=== PATIENT | female | born 2000 | race Caucasian/White ===

== ENCOUNTER 2021-10-12 03:56 | Emergency (ER) | payer SELFPAY ==
--- OUTSIDE RECORDS SUMMARY | 2021-10-12 03:58 | XMS REPORT | Continuity of Care Document ---
:2000 Author Organization [facility] t Address [address] [place] [address] Care Team Providers Name Role Phone CATALINA Attending Clinician Unavailable Payers Payer Name Policy Type Policy Number Effective Date Expiration Date Christy RAMIREZ O [id number] 2015 00:00:00 Problems This patient has no known problems. Allergies, Adverse Reactions, Alerts Allergy Allergy Status Severity Reaction(s) Onset Inactive Treating Comm ents Source Name Type Date Date Clinician NO KNOWN Drug Active [facility] ALLERGIE Class [facility] Medications This patient has no known medications. Procedures This patient has no known procedures. Encounters Start End Encounter Admission Attending Care Care Encounter Source Date/Time Date/Time Type Type Clinicians Facility Department ID 2020-11-16 2020-11-16 Outpatient Bria ARNOLD [facility] [id number] Univers 10:30:00 10:30:00 WINSOME [id number] [facility] 2020-11-16 2020-11-16 Outpatient Bria ARNOLD [facility] [id number] [facility] 10:30:00 10:30:00 WINSOME [facility] Results This patient has no known results.
[2021-10-12 04:57] LABS: Urine Blood 1+ (Negative); Urine Glucose Negative (Negative); Urine Protein Negative (Negative); Urine Specific Gravity 1.025 (1.005-1.030)
[2021-10-12 05:10] LABS: Absolute Lymphocytes (CBC) 2.3 K/uL (0.7-4.9); Basophils % 0.4 % (0-1.3); Hematocrit 39.3 % (36.0-45.0); Lymphocytes % 21.9 % (15.3-44.8); MPV 8.6 fL (7.6-11.3); RBC Red Blood Cell Count 4.44 M/uL (3.86-4.86)
[2021-10-12 05:13] LABS: Protime INR 0.95
[2021-10-12 05:21] LABS: Barbiturates NEGATIVE (NEGATIVE); Benzodiazepines NEGATIVE (NEGATIVE); Cocaine NEGATIVE (NEGATIVE); METHAMPHETAM NEGATIVE (NEGATIVE); Methadone NEGATIVE (NEGATIVE); Opiates NEGATIVE (NEGATIVE); Phencyclidine NEGATIVE (NEGATIVE); THC Cannibis POSITIVE (NEGATIVE)
[2021-10-12 06:08] LABS: Urine Specific Gravity/Preg 1.025 (1.005-1.030)
[2021-10-12 06:29] LABS: Sodium Level 143 mmol/L (136-145)
[2021-10-12 06:32] LABS: Potassium 2.9 mmol/L (3.5-5.1)
[2021-10-12 07:08] LABS: ALT/SGPT 11 U/L (12-78); AST/SGOT 10 U/L (15-37); Albumin 2.6 g/dL (3.4-5.0); BUN Blood Urea Nitrogen 7 mg/dL (7-18); Bicarbonate 19 mmol/L (21-32); Bilirubin Direct 0.2 mg/dL (0-0.2); Bilirubin Total 0.8 mg/dL (0.2-1.0); Glucose Level 73 mg/dL (74-106); Protein, Total 5.3 g/dL (6.4-8.2); Troponin (Emerg Dept Use Only) < 0.02 ng/mL (0.0-0.045)
[2021-10-12] MEDS ORDERED: POTASSIUM CL SA 10 MEQ TAB PO ONE (07:12)
[2021-10-12 07:33] LABS: Alkaline Phosphatase 31 U/L (45-117)
[2021-10-12] MEDS ORDERED: CALCIUM GLUCONATE 1 GM IVPB 1 GM/50 ML BAG IV ONE (08:29)
[2021-10-12] MEDS ORDERED: Mastisol Adhesive Liq ONE (08:33)
[2021-10-12] MEDS ORDERED: TETANUS & DIPHTHERIA TOX,ADULT 0.5 ML VIAL ONE (09:00)
[2021-10-12] MEDS ORDERED: SMZ./TMP. 800/160 MG TABLET ONE (09:44)
--- NOTE | 2021-10-12 09:48 | ER ---
Nurse's Notes [facility] Name: Zuleyka Garcia Age: 21 yrs Sex: Female : 2000 Arrival Date: 10/12/2021 Time: 03:56 Bed 14 Private MD: Diagnosis: Unspecified injury of head, initial encounter;Laceration of right lateral chest wall;Hypokalemia;Hypocalcemia;UTI/ Urinary tract infection, site not specified;Syncope Near Presentation: 10/12 03:59 Chief complaint: Patient states: pt tripped and fell at home no active bleeding or mr2 deformities aox4 denies pain. Care prior to arrival: None. Mechanism of Injury: Fall from standing position. Trauma event details: Injury occurred in the [facility], Injury occurred: at home. Injury occurred: October 12, 2021. 03:59 Acuity: MELANI 2 mr2 03:59 Method Of Arrival: EMS: [facility] mr2 04:00 Coronavirus screen: Vaccine status: Patient reports receiving the 2nd dose of the covid mr2 vaccine. Ebola Screen: No symptoms or risks identified at this time. Initial Sepsis Screen: Does the patient meet any 2 criteria? No. Patient's initial sepsis screen is negative. Does the patient have a suspected source of infection? No. Patient's initial sepsis screen is negative. Risk Assessment: Do you want to hurt yourself or someone else? Patient reports no desire to harm self or others. Onset of symptoms was October 12, 2021. Triage Assessment: 04:00 General: Appears in no apparent distress. Behavior is calm, cooperative, Smells of mr2 Reports. Pain: Denies pain. 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 - Social history:: Smoking status: Patient denies any tobacco usage or history of. Screenin:00 Abuse screen: Denies threats or abuse. Denies injuries from another. Tuberculosis mr2 screening: No symptoms or risk factors identified. 06:13 Nutritional screening: No deficits noted. Fall Risk None identified. mr2 Primary Survey: 03:59 NO uncontrolled hemorrhage observed. A: Airway: patent. Breathing/Chest: Respiratory mr2 pattern: regular, Respiratory effort: spontaneous, Breath sounds: clear, bilaterally. Circulation: Pulses: palpable right radial artery, right dorsalis pedis artery, left radial artery and left dorsalis pedis artery. Skin color: pink, Skin temperature: warm. Disability Alert. Exposure/Environment: All clothing and personal items were removed. Forensic evidence collection is not deemed to be indicated at this time. Items placed in patient belonging bag. There is no evidence of uncontrolled external bleeding. No obvious injuries are noted at this time. 05:00 Reassessment Airway Airway Patent Oxygen No O2 Breathing/Chest Respiratory pattern mr2 Regular Respiratory effort Spontaneous Breath sounds Clear Circulation Heart rhythm Sinus rhythm Heart tones Present Pulses Palpable Color [place]. Secondary Survey: 04:10 HEENT: No deficits noted. Gastrointestinal: No deficits noted. : No deficits noted. mr2 Musculoskeletal: No deficits noted. Assessment: 03:59 General: Appears in no apparent distress. Behavior is calm, cooperative. Pain: Denies mr2 pain. 07:20 Reassessment: Patient appears in no apparent distress at this time. Patient and/or vg1 family updated on plan of care and expected duration. Pain level reassessed. Patient is alert, oriented x 3, equal unlabored respirations, skin warm/dry/pink. states Left ankle pain 2/10 Patient states feeling better. 07:20 Derm: Derm: Skin Wound noted Right lateral side of ribs. vg1 08:49 Reassessment: Patient appears in no apparent distress at this time. No changes from vg1 previously documented assessment. Patient and/or family updated on plan of care and expected duration. Pain level reassessed. Patient is alert, oriented x 3, equal unlabored respirations, skin warm/dry/pink. wound care was provided for pt, steri strips and mastisol was placed per provider. 09:46 Reassessment: Patient appears in no apparent distress at this time. Patient and/or vg1 family updated on plan of care and expected duration. Pain level reassessed. Patient is alert, oriented x 3, equal unlabored respirations, skin warm/dry/pink. Received VO from DR Sutherland to administer Bactrim 800 mg PO x1. Vital Signs: 03:57 BP 129 / 68; Pulse 117; Resp 18; Temp 97.7(O); Pulse Ox 100% on R/A; Weight 63.5 kg; oe Height 5 ft. 4 in. (162.56 cm); 05:00 BP 117 / 72; Pulse 100; Resp 17; Temp 98.2; Pulse Ox 100% on R/A; Weight 58.06 kg; mr2 Height 5 ft. 3 in. (160.02 cm); 07:20 BP 97 / 68; Pulse 90; Resp 16; Pulse Ox 100% ; vg1 08:30 BP 106 / 59; Pulse 90; Resp 16; Pulse Ox 98% ; vg1 09:47 BP 114 / 65; Pulse 84; Resp 14; Pulse Ox 99% ; vg1 05:00 Body Mass Index 22.67 (58.06 kg, 160.02 cm) mr2 [place] Coma Score: 05:00 Eye Response: spontaneous(4). Verbal Response: oriented(5). Motor Response: obeys mr2 commands(6). Total: 15. Trauma Score (Adult): 05:00 Eye Response: spontaneous(1); Verbal Response: oriented(1); Motor Response: obeys mr2 commands(2); Systolic BP: > 89 mm Hg(4); Respiratory Rate: 10 to 29 per min(4); Anupam Score: 15; Trauma Score: 12 ED Course: 03:56 Patient arrived in ED. mw2 04:00 Carlton Salinas MD is Attending Physician. mh7 04:00 Patient maintains SpO2 saturation greater than 95% on room air. mr2 04:00 Thermoregulation: warm blanket given to patient. mr2 04:00 Patient has correct armband on for positive identification. Side rails up X2. Adult w/ mr2 patient. 04:00 Arm band placed on Patient placed in the treatment room. mr2 04:11 Akash Prakash, ONDINA is Primary Nurse. mr2 05:00 Protime (+inr) Sent. mr2 05:00 Ptt, Activated Sent. mr2 05:00 Basic Metabolic Panel Sent. mr2 05:00 CBC with Diff Sent. mr2 05:00 Type And Screen Sent. mr2 05:02 CBC with Automated Diff Sent. mr2 05:02 Type and Screen Sent. mr2 05:02 Basic Metabolic Panel Sent. mr2 05:02 Troponin (emerg Dept Use Only) Sent. mr2 05:02 ETOH Level Sent. mr2 05:02 UDS Sent. mr2 05:50 CT Traumagram (Head C Spine CAP W Con) In Process Unspecified. EDMS 06:07 Triage completed. mr2 06:13 No provider procedures requiring assistance completed. Inserted saline lock: 18 gauge mr2 in right antecubital area, using aseptic technique. 07:03 Attending Physician role handed off by Carlton Salinas MD kdr 07:03 Blade Sutherland MD is Attending Physician. kdr 09:56 IV discontinued, intact, bleeding controlled, No redness/swelling at site. Pressure vg1 dressing applied. Administered Medications: 05:02 Drug: NS 0.9% 1000 ml Route: IV; Rate: 1000 ml; Site: left antecubital; mr2 08:07 Follow up: IV Status: Completed infusion; IV Intake: 1000ml vg1 07:10 Drug: Potassium Chloride Liquid 40 mEq Route: PO; vg1 08:28 Follow up: Response: No adverse reaction vg1 08:41 Drug: Calcium Gluconate 1 grams Route: IVPB; Infused Over: 60 mins; Site: right vg1 antecubital; 08:49 Follow up: Calium Gluconate 1 gram in 50 mL was administered to pt. Provider notified. vg1 09:06 Follow up: IV Status: Completed infusion; IV Intake: 50ml vg1 09:05 Drug: Tetanus-Diphtheria Toxoid Adult 0.5 ml {Currency Examiner: [employer]. Exp: vg1 03/20/2023. Lot #: [id number]. } Route: IM; Site: right deltoid; 09:41 Follow up: Response: No adverse reaction vg1 09:46 Drug: Bactrim (trimethoprim-sulfamethoxazole) (160 mg-800 mg (DS) 1 tablet Route: PO; vg1 09:59 Follow up: Response: Medication administered at discharge. vg1 09:47 CANCELLED (Duplicate Order): Bactrim (trimethoprim-sulfamethoxazole) (160 mg-800 mg vg1 (DS) 1 tablet PO once Intake: 05:00 PO: 0ml; IV: 1000ml; Tubes: 0ml (); Total: 1000ml. mr2 08:07 IV: 1000ml; Total: 2000ml. vg1 09:06 IV: 50ml; Total: 2050ml. vg1 Output: 05:00 Urine: 200ml (Voided); Total: 200ml. mr2 Outcome: 09:48 Discharge ordered by . kdr 09:56 Discharged to home ambulatory, with friend. vg1 09:56 Condition: stable 09:56 Discharge instructions given to patient, Instructed on discharge instructions, follow up and referral plans. medication usage, wound care, Demonstrated understanding of instructions, follow-up care, medications, wound care, Prescriptions given X 1. 09:56 Patient's length of stay in the Emergency Department was greater than 2 hours. vg1 Patient's length of stay extended due to 09:58 Patient left the ED. vg1 Signatures: Dispatcher [employer] EDMS Blade Sutherland MD MD [facility] Levi Chavez MyKena 2 Zainab Hamlin, RN RN vg1 Carlton Salinas MD MD 7 Akash Prakash, ONDINA RN mr2 Corrections: (The following items were deleted from the chart) 08:55 08:49 Reassessment: Patient appears in no apparent distress at this time. No changes vg1 from previously documented assessment. Patient and/or family updated on plan of care and expected duration. Pain level reassessed. Patient is alert, oriented x 3, equal unlabored respirations, skin warm/dry/pink. vg1
--- NOTE | 2021-10-12 09:49 | EDPHYS ---
Physician Documentation [facility] Name: Zuleyka Garcia Age: 21 yrs Sex: Female : 2000 Arrival Date: 10/12/2021 Time: 03:56 Bed 14 Private MD: ED Physician Blade Sutherland HPI: 10/12 04:07 This 21 yrs old Female presents to ER via Unassigned with complaints of Fall. mh7 04:07 Details of fall: The patient fell from an upright position, while walking, and struck [facility] unknown. Onset: The symptoms/episode began/occurred just prior to arrival, today. Associated injuries: The patient sustained Right side of back, abrasion, contusion. Severity of symptoms: At their worst the symptoms were moderate, earlier today, in the emergency department the symptoms have improved, moderately. 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 - Social history:: Smoking status: Patient denies any tobacco usage or history of. ROS: 04:07 Constitutional: Negative for fever, chills, and weight loss, Eyes: Negative for injury, mh7 pain, redness, and discharge, ENT: Negative for injury, pain, and discharge, Neck: Negative for injury, pain, and swelling, Cardiovascular: Negative for chest pain, palpitations, and edema, Respiratory: Negative for shortness of breath, cough, wheezing, and pleuritic chest pain, Abdomen/GI: Negative for abdominal pain, nausea, vomiting, diarrhea, and constipation, : Negative for injury, bleeding, discharge, and swelling, MS/Extremity: Negative for injury and deformity, Neuro: Negative for headache, weakness, numbness, tingling, and seizure, Psych: Negative for depression, anxiety, suicide ideation, homicidal ideation, and hallucinations, Allergy/Immunology: Negative for hives, rash, and allergies, Endocrine: Negative for neck swelling, polydipsia, polyuria, polyphagia, and marked weight changes, Hematologic/Lymphatic: Negative for swollen nodes, abnormal bleeding, and unusual bruising. Exam: 04:07 Constitutional: This is a well developed, well nourished patient who is awake, alert, mh7 and in no acute distress. Head/Face: Normocephalic, atraumatic. Eyes: Pupils equal round and reactive to light, extra-ocular motions intact. Lids and lashes normal. Conjunctiva and sclera are non-icteric and not injected. Cornea within normal limits. Periorbital areas with no swelling, redness, or edema. Neck: Trachea midline, no thyromegaly or masses palpated, and no cervical lymphadenopathy. Supple, full range of motion without nuchal rigidity, or vertebral point tenderness. No Meningismus. 04:07 Respiratory: Lungs have equal breath sounds bilaterally, clear to auscultation and percussion. No rales, rhonchi or wheezes noted. No increased work of breathing, no retractions or nasal flaring. Abdomen/GI: Soft, non-tender, with normal bowel sounds. No distension or tympany. No guarding or rebound. No evidence of tenderness throughout. MS/ Extremity: Pulses equal, no cyanosis. Neurovascular intact. Full, normal range of motion. Neuro: Awake and alert, GCS 15, oriented to person, place, time, and situation. Cranial nerves II-XII grossly intact. Motor strength 5/5 in all extremities. Sensory grossly intact. Cerebellar exam normal. Normal gait. Psych: Awake, alert, with orientation to person, place and time. Behavior, mood, and affect are within normal limits. 04:07 Cardiovascular: Rate: tachycardic, Rhythm: regular, Pulses: no pulse deficits are appreciated, Heart sounds: normal, normal S1and S2, Edema: is not appreciated, JVD: is not appreciated. 04:07 Back: No spinal tenderness. No costovertebral tenderness. Full range of motion. mh 04:07 Chest/axilla: Inspection: abrasion, that is mild, of the right lateral posterior chest Small laceration without bleeding, Palpation: tenderness, that is moderate, of the right lateral posterior chest, that totally reproduces the patient's complaints, Axilla: are normal, Lymph nodes: lymphadenopathy is not appreciated. 04:07 Skin: injury, abrasion(s), small abrasion noted, of the Right posterior lateral chest wall, laceration(s), the wound is approximately 3 cm(s), with a depth of 0.25 cm(s), of the Right posterior lateral chest wall. Vital Signs: 03:57 BP 129 / 68; Pulse 117; Resp 18; Temp 97.7(O); Pulse Ox 100% on R/A; Weight 63.5 kg; oe Height 5 ft. 4 in. (162.56 cm); 05:00 BP 117 / 72; Pulse 100; Resp 17; Temp 98.2; Pulse Ox 100% on R/A; Weight 58.06 kg; mr2 Height 5 ft. 3 in. (160.02 cm); 07:20 BP 97 / 68; Pulse 90; Resp 16; Pulse Ox 100% ; vg1 08:30 BP 106 / 59; Pulse 90; Resp 16; Pulse Ox 98% ; vg1 09:47 BP 114 / 65; Pulse 84; Resp 14; Pulse Ox 99% ; vg1 05:00 Body Mass Index 22.67 (58.06 kg, 160.02 cm) mr2 Anupam Coma Score: 05:00 Eye Response: spontaneous(4). Verbal Response: oriented(5). Motor Response: obeys mr2 commands(6). Total: 15. Trauma Score (Adult): 05:00 Eye Response: spontaneous(1); Verbal Response: oriented(1); Motor Response: obeys mr2 commands(2); Systolic BP: > 89 mm Hg(4); Respiratory Rate: 10 to 29 per min(4); [place] Score: 15; Trauma Score: 12 MDM: 09:48 Patient medically screened. kdr 15:46 Data reviewed: vital signs, nurses notes, lab test result(s), radiologic studies. kdr Counseling: I had a detailed discussion with the patient and/or guardian regarding: the historical points, exam findings, and any diagnostic results supporting the discharge/admit diagnosis, lab results, radiology results, the need for outpatient follow up. 10/12 04:02 Order name: Basic Metabolic Panel [facility] 10/12 04:02 Order name: CBC with Diff [facility] 10/12 04:02 Order name: Type And Screen [facility] 10/12 04:02 Order name: LFT's; Complete Time: 07:37 [facility] 10/12 04:02 Order name: Protime (+inr); Complete Time: 05:18 [facility] 10/12 04:02 Order name: Ptt, Activated; Complete Time: 05:18 [facility] 10/12 04:02 Order name: UDS; Complete Time: 05:28 [facility] 10/12 04:02 Order name: ETOH Level; Complete Time: 05:28 [facility] 10/12 04:03 Order name: Troponin (emerg Dept Use Only); Complete Time: 07:37 [facility] 10/12 04:03 Order name: Basic Metabolic Panel; Complete Time: 07:37 EDMS 10/12 04:03 Order name: CBC with Automated Diff; Complete Time: 05:18 EDMS 10/12 04:03 Order name: Type and Screen; Complete Time: 06:28 EDMS 10/12 04:19 Order name: Acetaminophen; Complete Time: 05:47 7 10/12 04:19 Order name: Salicylate; Complete Time: 05:47 [facility] 10/12 04:02 Order name: Labs collected and sent; Complete Time: 05:00 [facility] 10/12 04:02 Order name: EKG; Complete Time: 04:03 [facility] 10/12 04:02 Order name: EKG - Nurse/Tech; Complete Time: 05:04 [facility] 10/12 04:02 Order name: Urine Dipstick-Ancillary (obtain specimen); Complete Time: 04:52 [facility] 10/12 04:02 Order name: Urine Test (obtain specimen); Complete Time: 04:52 [facility] 10/12 04:04 Order name: CT Traumagram (Head C Spine CAP W Con) [facility] 10/12 04:56 Order name: Urine Dipstick-Ancillary; Complete Time: 05:05 [facility] 10/12 04:57 Order name: Urine --Ancillary (enter results) [facility] 10/12 07:17 Order name: ABO/RH no charge; Complete Time: 07:37 EDMS Administered Medications: 05:02 Drug: NS 0.9% 1000 ml Route: IV; Rate: 1000 ml; Site: left antecubital; mr2 08:07 Follow up: IV Status: Completed infusion; IV Intake: 1000ml vg1 07:10 Drug: Potassium Chloride Liquid 40 mEq Route: PO; vg1 08:28 Follow up: Response: No adverse reaction vg1 08:41 Drug: Calcium Gluconate 1 grams Route: IVPB; Infused Over: 60 mins; Site: right vg1 antecubital; 08:49 Follow up: Calium Gluconate 1 gram in 50 mL was administered to pt. Provider notified. vg1 09:06 Follow up: IV Status: Completed infusion; IV Intake: 50ml vg1 09:05 Drug: Tetanus-Diphtheria Toxoid Adult 0.5 ml {Application Helper: [employer]. Exp: vg1 03/20/2023. Lot #: [id number]. } Route: IM; Site: right deltoid; 09:41 Follow up: Response: No adverse reaction vg1 09:46 Drug: Bactrim (trimethoprim-sulfamethoxazole) (160 mg-800 mg (DS) 1 tablet Route: PO; vg1 09:59 Follow up: Response: Medication administered at discharge. vg1 09:47 CANCELLED (Duplicate Order): Bactrim (trimethoprim-sulfamethoxazole) (160 mg-800 mg vg1 (DS) 1 tablet PO once Disposition Summary: 10/12/21 09:48 Discharge Ordered Location: Home kdr Problem: new kdr Symptoms: have improved kdr Condition: Stable kdr Diagnosis - Unspecified injury of head, initial encounter kdr - Laceration of right lateral chest wall kdr - Hypokalemia kdr - Hypocalcemia kdr - UTI/ Urinary tract infection, site not specified kdr - Syncope Near kdr Followup: kdr - With: Private Physician - When: 2 - 3 days - Reason: If symptoms return, Further diagnostic work-up, Recheck today's complaints, Continuance of care, Re-evaluation by your physician Discharge Instructions: - Discharge Summary Sheet kdr - Sterile Tape Wound Care kdr - Urinary Tract Infection, Adult, [id number] kdr - Syncope, [id number] kdr - Hypocalcemia, Adult kdr - Laceration Care, Adult, [id number] kdr - Head Injury, Adult, [id number] kdr - Hypokalemia kdr Forms: - Medication Reconciliation Form kdr - Thank You Letter kdr Prescriptions: - Bactrim DS 800-160 mg Oral Tablet - take 1 tablet by ORAL route every 12 hours for 7 days; 14 tablet; Refills: 0, kdr Product Selection Permitted Signatures: Dispatcher [employer] EDMS Blade Sutherland MD MD kdr Zainab Hamlin RN RN vg1 Carlton Salinas MD MD mh7 Akash Prakash RN RN mr2 Corrections: (The following items were deleted from the chart) 04:22 04:03 Head Brain Wo [id number] ordered. EDMS EDMS 09:47 09:46 Bactrim (trimethoprim-sulfamethoxazole) (160 mg-800 mg (DS) 1 tablet PO once vg1 ordered. kdr
[2021-10-12 10:06] VITALS: TEMP 98.2
[2021-10-12 10:11] VITALS: BP 114/65; O2SAT 99
--- NOTE | 2021-10-12 14:42 | RAD REPORT ---
CLINICAL HISTORY: CT - Head C Spine Cap W Con - 10/12/2021 8:18 am COMPARISON: None. CLINICAL HISTORY: [facility] MAIN trauma TECHNIQUE: Axial images were obtained from skull base to vertex without intravenous contrast. Imag es viewed on bone and brain windows. Multiplanar reformats were performed. Automated exposure contr ol was utilized on this examination as a dose lowering technique. FINDINGS: Brain parenchyma, ventricles, dura, meninges, and extra-axial spaces: Ventricles and sulci are normal. No abnormal attenuation of brain parenchyma is present. No acute intracranial hemor rhage or abnormal extra-axial fluid collections are present. Vascular structures: No hyperdense arteries or veins. Calvarium, mastoid air cells, paranasal sinuses and orbits: The calvarium is normal. The mastoid air cells are clear. Visualized paranasal sinuses are unremarkable. Orbital structures are unremarkable. EXAM DESCRIPTION: CT Cervical Spine COMPARISON: None. CLINICAL HISTORY: [facility] MAIN trauma TECHNIQUE: Axial CT images were obtained through the entire cervical spine without contrast. Sagit marina and coronal reconstructions are provided. Automated exposure control was utilized on this examina tion as a dose lowering technique. FINDINGS: Vertebrae: Vertebral statures and alignment are normal. No acute fracture, dislocation o r destructive osseous process is present. Spinal canal, foramina, and facet joints: No significant spinal canal or foraminal stenoses. No significant facet arthropathy. Paraspinous soft-tissues: Normal. Thyroid: Normal. Other Findings: None. EXAM DESCRIPTION: CT Chest, Abdomen, and Pelvis COMPARISON: None. CLINICAL HISTORY: [facility] MAIN trauma TECHNIQUE: CT images through the chest, abdomen, and pelvis following IV contrast. Multiplanar refor mats. Automated exposure control was utilized on this examination as a dose lowering technique. FINDINGS: CT CHEST FINDINGS: Heart and mediastinum: Heart size is normal. No lymphadenopathy. Vascular: Unremarkable. Thyroid gland: Visualized portions are normal. Lungs: Clear. Airways: No filling defects. No bronchiectasis. Pleura: No pneumothorax. No significant pleural effusion. Musculoskeletal and soft tissues: Within normal limits for age. CT ABDOMEN & PELVIS FINDINGS: Liver: Normal. Gallbladder and biliary: Normal gallbladder. Unremarkable biliary tree. Pancreas: Normal. Spleen: Normal. Kidneys and adrenal glands: Normal adrenal glands. Normal kidneys Stomach and Small Bowel: The stomach and small bowel are normal. Urinary bladder: Normal. Uterus and Adnexa: Normal. Colon and Appendix: The colon is unremarkable. No evidence of appendicitis. Peritoneal cavity: No ascites or free air. Retroperitoneum and lymph nodes: Normal. Vascular: Unremarkable. Musculoskeletal and soft tissues: Soft tissues are unremarkable. No aggressive bone lesions. No c ompression fracture. IMPRESSION: HEAD IMPRESSION: No acute intracranial abnormality. C-SPINE IMPRESSION: No acute findings of the cervical spine. CHEST IMPRESSION: No acute chest findings. ABDOMEN AND PELVIS IMPRESSION: No acute intra-abdominal abnormality. Electronically signed by: Tyrell Gonzalez MD 10/12/2021 7:29 AM C++ QUANT DEVELOPER Due to temporary technical issues with the PACS/Fluency reporting system, reports are being signed by the in house radiologists without review as a courtesy to insure prompt reporting. The interpreting radiologist is fully responsible for the content of the report.
== END 2021-10-12 09:58 | disposition home or self-care (01) ==
LOC: ER 03:56
DX: S21.111A Laceration without foreign body of right front wall of thorax without penetration into thoracic cavity, initial encounter (principal); N39.0 Urinary tract infection, site not specified; E87.6 Hypokalemia; E83.51 Hypocalcemia; R55 Syncope and collapse; W18.30XA Fall on same level, unspecified, initial encounter; Y93.01 Activity, walking, marching and hiking; Z23 Encounter for immunization
CPT/HCPCS: 36415; 70450; 71260; 72125; 74177; 80048; 80076; 80307; 80320; 80329; 81003; 81025; 82565; 84484; 85025; 85610; 85730; 86850; 86900; 86901; 90471; 90714; 93005; 96361; 96365; 99284; J0610; Q9967